=== PATIENT | female | born 1935 | race African-American/Black ===

== ENCOUNTER 2022-04-25 11:30 | Inpatient (IN) | payer MEDICARE, OTHER ==
[~2022-04-25] VITALS: Ht 154.9 cm; Wt 49.9 kg
[2022-04-25] MEDS ORDERED: HALOPERIDOL LACTATE 5 MG/1 ML VIAL IM ONE (12:15)
[2022-04-25] MEDS ORDERED: HALOPERIDOL LACTATE 5 MG/1 ML VIAL ONE (12:19)
[2022-04-25] MEDS ORDERED: ALBU8.5H8 INH (12:22)
[2022-04-25] MEDS ORDERED: LEVE500T20 PO (12:22)
[2022-04-25] MEDS ORDERED: CHOL200013 PO (12:22)
[2022-04-25] MEDS ORDERED: MEMA5TAB42 PO (12:22)
[2022-04-25] MEDS ORDERED: AMLO-212 PO (12:22)
[2022-04-25] MEDS ORDERED: DONE10TA44 PO (12:22)
[2022-04-25] MEDS ORDERED: ATOR10TA PO (12:22)
[2022-04-25 12:50] LABS: HEMATOCRIT 29.7 % (31.2-41.9); MEAN CORPUSCULAR HEMOGLOBIN 27.4 uug (24.7-32.8); MEAN CORPUSCULAR VOLUME 81.5 fL (75.5-95.3); PLATELET COUNT (AUTO) 289 K/uL (179-408)
[2022-04-25 13:03] LABS: ALANINE AMINOTRANSFERASE 22 U/L (14-59); ALKALINE PHOSPHATASE 70 U/L (50-136); ASPARTATE AMINOTRANSFERASE 20 U/L (15-37); BILIRUBIN,DIRECT 0.1 mg/dL (0.0-0.2); BILIRUBIN,TOTAL 0.7 mg/dL (0.2-1.0); CARBON DIOXIDE 26 mmol/L (21-32); CHLORIDE 105 mmol/L (98-107); CREATININE 1.1 mg/dL (0.6-1.3); GLUCOSE 113 mg/dL (74-106); TOTAL PROTEIN, SERUM 7.1 g/dL (6.4-8.2); UREA NITROGEN, BLOOD 31 mg/dL (7-18)
[2022-04-25 13:09] LABS: ACETAMINOPHEN < 2.0 ug/mL (10-30); ETHANOL < 3 MG/DL (0-0)
[2022-04-25 13:16] LABS: THYROID STIMULATING HORMONE 2.263 mIU/mL (0.358-3.740)
[2022-04-25 13:17] LABS: *BILIRUBIN,URIN 1+ (NEGATIVE); *CLARITY,URINE CLEAR (CLEAR); *COLOR,URINE YELLOW (YELLOW); *KETONES,URINE 2+ (NEGATIVE); LEUKOCYTE ESTERASE ,URINE NEGATIVE (NEGATIVE); NITRITE, URINE NEGATIVE (NEGATIVE); UGLUCOSE NEGATIVE (NEGATIVE)
[2022-04-25 13:24] LABS: *BLOOD, URINE TRACE (NEGATIVE)
[2022-04-25 13:36] LABS: *AMPHETAMINE, URINE NEGATIVE (NEGATIVE); *CANNABINOID, URINE NEGATIVE (NEGATIVE); *COCCAINE, URINE NEGATIVE (NEGATIVE); *PHENCYCLIDINE SCREEN,URINE NEGATIVE (NEGATIVE)
[2022-04-25 14:08] LABS: SQUAMOUS EPITHELIAL CELL,UR FEW /HPF (NONE SEEN); WBC,URINE 0-3 /HPF (0-3)
[2022-04-25] MEDS ORDERED: TEMAZEPAM 7.5 MG CAPSULE PO PRN (21:15)
[2022-04-25] MEDS ORDERED: BLOOD SUGAR DIAGNOSTIC 1 EACH STRIP VI ONE (21:15)
[2022-04-25] MEDS ORDERED: ACETAMINOPHEN 325 MG TABLET PO PRN (21:15)
[2022-04-25] MEDS ORDERED: CLONAZEPAM 0.5 MG TABLET PO PRN (21:15)
[2022-04-25] MEDS ORDERED: MAGNESIUM HYDROXIDE 30 ML LIQUID UDC PO PRN (21:15)
[2022-04-25] MEDS ORDERED: MAG HYDROX/AL HYDROX/SIMETH 30 ML LIQUID UDC PO PRN (21:15)
[2022-04-25] MEDS ORDERED: ALBUTEROL SULFATE 8 GM HFA.AER.AD IH PRN (23:45)
[2022-04-26] MEDS ORDERED: ALBUTEROL SULFATE 2.5 MG/3 ML NEBU NEB PRN (05:30)
[2022-04-26 08:13] VITALS: BP 90/63
[2022-04-26] MEDS: CHOLECALCIFEROL 1,000 UNIT TABLET PO SCH (08:46)
[2022-04-26] MEDS: levETIRAcetam 500 MG TABLET PO SCH ×2 (08:46→20:03)
[2022-04-26] MEDS: AMLODIPINE 5 MG TABLET PO SCH (08:47)
[2022-04-26] MEDS ORDERED: DONEPEZIL 10 MG TABLET PO SCH ×2 (09:00)
[2022-04-26] MEDS ORDERED: MEMANTINE HCL 5 MG TABLET PO SCH ×2 (09:00)
[2022-04-26] MEDS: DIVALPROEX SPRINKLE 125 MG CAP.SPRINK PO SCH ×2 (09:05→20:02)
[2022-04-26 12:18] LABS: CARBON DIOXIDE 20 mmol/L (21-32); CHLORIDE 100 mmol/L (98-107); CREATININE 1.5 mg/dL (0.6-1.3); GLUCOSE 135 mg/dL (74-106); POTASSIUM 4.1 mmol/L (3.5-5.1); UREA NITROGEN, BLOOD 31 mg/dL (7-18)
[2022-04-26 12:19] LABS: ALANINE AMINOTRANSFERASE 23 U/L (14-59); ALKALINE PHOSPHATASE 88 U/L (50-136); ASPARTATE AMINOTRANSFERASE 34 U/L (15-37); BILIRUBIN,TOTAL 0.8 mg/dL (0.2-1.0); TOTAL PROTEIN, SERUM 8.2 g/dL (6.4-8.2)
[2022-04-26] MEDS: ATORVASTATIN 10 MG TABLET PO SCH (20:03)
[2022-04-26 20:05] VITALS: BP 136/96
[2022-04-26] MEDS: OLANZAPINE 2.5 MG TABLET PO SCH (20:08)
[2022-04-27 08:03] VITALS: BP 127/52
[2022-04-27] MEDS: DIVALPROEX SPRINKLE 125 MG CAP.SPRINK PO SCH ×2 (09:00→21:20)
[2022-04-27] MEDS: AMLODIPINE 5 MG TABLET PO SCH (09:00)
[2022-04-27] MEDS: CHOLECALCIFEROL 1,000 UNIT TABLET PO SCH (09:00)
[2022-04-27] MEDS: levETIRAcetam 500 MG TABLET PO SCH ×3 (09:00→21:19)
[2022-04-27 16:18] VITALS: BP 149/80
[2022-04-27 19:56] VITALS: BP 143/90
[2022-04-27] MEDS: OLANZAPINE 2.5 MG TABLET PO SCH (21:20)
[2022-04-27] MEDS: ATORVASTATIN 10 MG TABLET PO SCH (21:20)
[2022-04-28 07:48] VITALS: BP 147/90
[2022-04-28] MEDS: levETIRAcetam 500 MG TABLET PO SCH ×2 (08:50→20:43)
[2022-04-28] MEDS: CHOLECALCIFEROL 1,000 UNIT TABLET PO SCH (08:50)
[2022-04-28] MEDS: DIVALPROEX SPRINKLE 125 MG CAP.SPRINK PO SCH ×2 (08:50→20:43)
[2022-04-28] MEDS: AMLODIPINE 5 MG TABLET PO SCH (08:50)
[2022-04-28 20:03] VITALS: BP 144/74
[2022-04-28] MEDS: OLANZAPINE 2.5 MG TABLET PO SCH (20:43)
[2022-04-28] MEDS: ATORVASTATIN 10 MG TABLET PO SCH (20:43)
[2022-04-29] MEDS: DIVALPROEX SPRINKLE 125 MG CAP.SPRINK PO SCH ×2 (08:56→20:18)
[2022-04-29] MEDS: levETIRAcetam 500 MG TABLET PO SCH ×2 (08:56→20:18)
[2022-04-29] MEDS: CHOLECALCIFEROL 1,000 UNIT TABLET PO SCH (08:56)
[2022-04-29] MEDS: AMLODIPINE 5 MG TABLET PO SCH (08:57)
[2022-04-29 10:23] VITALS: BP 156/93
[2022-04-29 15:04] VITALS: BP 109/55
[2022-04-29 20:05] VITALS: BP 132/82
[2022-04-29] MEDS: ATORVASTATIN 10 MG TABLET PO SCH (20:18)
[2022-04-30 07:30] VITALS: BP 162/92
[2022-04-30] MEDS: levETIRAcetam 500 MG TABLET PO SCH ×2 (09:23→20:33)
[2022-04-30] MEDS: CHOLECALCIFEROL 1,000 UNIT TABLET PO SCH (09:23)
[2022-04-30] MEDS: DIVALPROEX SPRINKLE 125 MG CAP.SPRINK PO SCH ×2 (09:23→20:33)
[2022-04-30] MEDS: AMLODIPINE 5 MG TABLET PO SCH (09:24)
[2022-04-30 16:00] VITALS: BP 144/78
[2022-04-30 20:18] VITALS: BP 139/81
[2022-04-30] MEDS: OLANZAPINE 2.5 MG TABLET PO SCH (20:33)
[2022-04-30] MEDS: ATORVASTATIN 20 MG TABLET PO SCH (20:33)
[2022-04-30] MEDS ORDERED: OLANZAPINE 2.5 MG TABLET PO SCH (21:00)
[2022-05-01 07:30] VITALS: BP 165/90
[2022-05-01] MEDS: levETIRAcetam 500 MG TABLET PO SCH ×2 (09:04→20:47)
[2022-05-01] MEDS: DIVALPROEX SPRINKLE 125 MG CAP.SPRINK PO SCH ×2 (09:04→20:47)
[2022-05-01] MEDS: CHOLECALCIFEROL 1,000 UNIT TABLET PO SCH (09:04)
[2022-05-01] MEDS: AMLODIPINE 5 MG TABLET PO SCH (09:05)
[2022-05-01] MEDS: METOPROLOL TARTRATE 25 MG TABLET PO SCH ×2 (09:42→20:48)
[2022-05-01 09:47] LABS: BILIRUBIN,TOTAL 0.9 mg/dL (0.2-1.0); CREATININE 1.3 mg/dL (0.6-1.3); MAGNESIUM 2.1 mg/dL (1.8-2.4); PHOSPHOROUS 4.1 mg/dL (2.5-4.9); POTASSIUM 3.9 mmol/L (3.5-5.1); TOTAL PROTEIN, SERUM 7.7 g/dL (6.4-8.2)
[2022-05-01 09:53] LABS: HEMATOCRIT 34.4 % (31.2-41.9); MEAN CORPUSCULAR HEMOGLOBIN 27.6 uug (24.7-32.8); MEAN CORPUSCULAR VOLUME 82.5 fL (75.5-95.3); PLATELET COUNT (AUTO) 410 K/uL (179-408)
[2022-05-01 16:00] VITALS: BP 113/70
[2022-05-01 20:00] VITALS: BP 138/73
[2022-05-01] MEDS: ATORVASTATIN 20 MG TABLET PO SCH (20:47)
[2022-05-01] MEDS: OLANZAPINE 2.5 MG TABLET PO SCH (20:47)
[2022-05-02] MEDS: PANTOPRAZOLE SODIUM 40 MG TABLET.DR PO SCH (06:26)
[2022-05-02 07:29] LABS: HEMATOCRIT 31.7 % (31.2-41.9); MEAN CORPUSCULAR HEMOGLOBIN 27.5 uug (24.7-32.8); MEAN CORPUSCULAR VOLUME 82.5 fL (75.5-95.3); PLATELET COUNT (AUTO) 328 K/uL (179-408)
[2022-05-02 07:47] LABS: CREATININE 1.2 mg/dL (0.6-1.3); MAGNESIUM 2.1 mg/dL (1.8-2.4); PHOSPHOROUS 3.5 mg/dL (2.5-4.9)
[2022-05-02 08:53] VITALS: BP 148/67
[2022-05-02] MEDS: METOPROLOL TARTRATE 25 MG TABLET PO SCH ×2 (09:29→21:00)
[2022-05-02] MEDS: ASPIRIN EC 81 MG TABLET.DR PO SCH (09:30)
[2022-05-02] MEDS: levETIRAcetam 500 MG TABLET PO SCH ×2 (09:30→20:43)
[2022-05-02] MEDS: AMLODIPINE 5 MG TABLET PO SCH (09:39)
[2022-05-02] MEDS: CHOLECALCIFEROL 1,000 UNIT TABLET PO SCH (09:39)
[2022-05-02] MEDS: DIVALPROEX SPRINKLE 125 MG CAP.SPRINK PO SCH ×2 (09:40→20:43)
[2022-05-02 16:00] VITALS: BP 128/73
[2022-05-02 19:46] VITALS: BP 109/53
[2022-05-02] MEDS: OLANZAPINE 2.5 MG TABLET PO SCH (20:43)
[2022-05-02] MEDS: ATORVASTATIN 20 MG TABLET PO SCH (20:59)
[2022-05-03] MEDS: PANTOPRAZOLE SODIUM 40 MG TABLET.DR PO SCH (06:19)
[2022-05-03 07:30] VITALS: BP 126/78
[2022-05-03] MEDS: CHOLECALCIFEROL 1,000 UNIT TABLET PO SCH (08:16)
[2022-05-03] MEDS: ASPIRIN EC 81 MG TABLET.DR PO SCH (08:16)
[2022-05-03] MEDS: levETIRAcetam 500 MG TABLET PO SCH ×2 (08:16→20:20)
[2022-05-03] MEDS: DIVALPROEX SPRINKLE 125 MG CAP.SPRINK PO SCH ×2 (08:16→20:20)
[2022-05-03] MEDS: AMLODIPINE 5 MG TABLET PO SCH (08:17)
[2022-05-03] MEDS: METOPROLOL TARTRATE 25 MG TABLET PO SCH ×2 (08:18→20:21)
[2022-05-03 16:00] VITALS: BP 114/73
[2022-05-03 20:00] VITALS: BP 145/80
[2022-05-03] MEDS: OLANZAPINE 2.5 MG TABLET PO SCH (20:20)
[2022-05-03] MEDS: ATORVASTATIN 20 MG TABLET PO SCH (20:20)
[2022-05-04] MEDS: PANTOPRAZOLE SODIUM 40 MG TABLET.DR PO SCH (06:28)
[2022-05-04 07:59] VITALS: BP 151/79
[2022-05-04] MEDS: ASPIRIN EC 81 MG TABLET.DR PO SCH (08:47)
[2022-05-04] MEDS: AMLODIPINE 5 MG TABLET PO SCH (08:47)
[2022-05-04] MEDS: CHOLECALCIFEROL 1,000 UNIT TABLET PO SCH (08:47)
[2022-05-04] MEDS: DIVALPROEX SPRINKLE 125 MG CAP.SPRINK PO SCH ×2 (08:48→20:29)
[2022-05-04] MEDS: levETIRAcetam 500 MG TABLET PO SCH ×2 (08:48→20:30)
[2022-05-04] MEDS: METOPROLOL TARTRATE 25 MG TABLET PO SCH ×2 (08:48→20:30)
[2022-05-04 16:08] VITALS: BP 114/61
[2022-05-04] MEDS: GLUCERNA SHAKE 237 ML CAN PO SCH (17:23)
[2022-05-04 20:25] VITALS: BP 136/73
[2022-05-04] MEDS: OLANZAPINE 2.5 MG TABLET PO SCH (20:29)
[2022-05-04] MEDS: ATORVASTATIN 20 MG TABLET PO SCH (20:30)
[2022-05-05] MEDS: PANTOPRAZOLE SODIUM 40 MG TABLET.DR PO SCH (06:31)
[2022-05-05 07:42] VITALS: BP 146/78
[2022-05-05] MEDS: ASPIRIN EC 81 MG TABLET.DR PO SCH (08:43)
[2022-05-05] MEDS: CHOLECALCIFEROL 1,000 UNIT TABLET PO SCH (08:43)
[2022-05-05] MEDS: GLUCERNA SHAKE 237 ML CAN PO SCH ×2 (08:43→16:46)
[2022-05-05] MEDS: levETIRAcetam 500 MG TABLET PO SCH ×2 (08:44→20:35)
[2022-05-05] MEDS: AMLODIPINE 5 MG TABLET PO SCH (08:44)
[2022-05-05] MEDS: DIVALPROEX SPRINKLE 125 MG CAP.SPRINK PO SCH ×2 (08:44→20:35)
[2022-05-05] MEDS: METOPROLOL TARTRATE 25 MG TABLET PO SCH ×2 (08:45→20:36)
[2022-05-05 16:16] VITALS: BP 114/59
[2022-05-05 20:00] VITALS: BP 147/59
[2022-05-05] MEDS: ATORVASTATIN 20 MG TABLET PO SCH (20:35)
[2022-05-05] MEDS: OLANZAPINE 2.5 MG TABLET PO SCH (20:35)
[2022-05-06] MEDS: PANTOPRAZOLE SODIUM 40 MG TABLET.DR PO SCH (06:21)
[2022-05-06 07:30] VITALS: BP 137/91
[2022-05-06] MEDS: levETIRAcetam 500 MG TABLET PO SCH (08:47)
[2022-05-06] MEDS: DIVALPROEX SPRINKLE 125 MG CAP.SPRINK PO SCH (08:48)
[2022-05-06] MEDS: CHOLECALCIFEROL 1,000 UNIT TABLET PO SCH (08:48)
[2022-05-06] MEDS: ASPIRIN EC 81 MG TABLET.DR PO SCH (08:48)
[2022-05-06] MEDS: METOPROLOL TARTRATE 25 MG TABLET PO SCH (08:49)
[2022-05-06] MEDS: AMLODIPINE 5 MG TABLET PO SCH (08:49)
[2022-05-06] MEDS: GLUCERNA SHAKE 237 ML CAN PO SCH (08:50)
[2022-05-06 15:08] VITALS: BP 139/77
== END 2022-05-06 15:15 | DRG 885 ==
LOC: ER 11:30 → GPS 19:52
PROVIDERS: ADMIT Nurse Practitioner Psychiatric/Mental Health
DX: F29 Unspecified psychosis not due to a substance or known physiological condition (principal); F01.51 Vascular dementia, unspecified severity, with behavioral disturbance; N17.0 Acute kidney failure with tubular necrosis; F02.81 Dementia in other diseases classified elsewhere, unspecified severity, with behavioral disturbance; D68.59 Other primary thrombophilia; M84.412A Pathological fracture, left shoulder, initial encounter for fracture; F39 Unspecified mood [affective] disorder; G30.9 Alzheimer's disease, unspecified; D50.9 Iron deficiency anemia, unspecified; E78.5 Hyperlipidemia, unspecified; F32.A Depression, unspecified; G40.909 Epilepsy, unspecified, not intractable, without status epilepticus; G47.00 Insomnia, unspecified; J45.909 Unspecified asthma, uncomplicated; Z86.73 Personal history of transient ischemic attack (TIA), and cerebral infarction without residual deficits; Z91.14 Patient's other noncompliance with medication regimen; Z73.6 Limitation of activities due to disability; I11.9 Hypertensive heart disease without heart failure; Z79.899 Other long term (current) drug therapy; R00.0 Tachycardia, unspecified; Z20.822 Contact with and (suspected) exposure to COVID-19; R19.5 Other fecal abnormalities
CPT/HCPCS: 36415; 70450; 71045; 73020; 80164; 80299; 83550; 83735; 84100; 84443; 85025; 93005; 97161; A4663; G0480; J1630; J3535